=== PATIENT | male | born 1975 | race African-American/Black ===

== ENCOUNTER 2022-12-21 16:32 | Emergency (ER) | payer MEDICAID, OTHER ==
[~2022-12-21] VITALS: Ht 175.3 cm; Wt 79.0 kg
[~2022-12-21 16:32] MED LIST: AMOX-424 MT; SULF1TAB48 MT
[2022-12-21 16:39] VITALS: TEMP 98.4; O2SAT 98
[2022-12-21] MEDS ORDERED: IBUPROFEN 600MG TABLET PO ONE (18:15)
[2022-12-21] MEDS ORDERED: LIDOCAINE HCL/EPINEPHRINE 1%-EPI 1:100,000 20 ML VIAL INFIL ONE (18:15)
[2022-12-21] MEDS ORDERED: BACITRACIN ZINC OINT UDPKT TOP ONE (18:15)
[2022-12-21 18:39] VITALS: BP 91/64; PULSE 96; RESP 20
[2022-12-21] MEDS ORDERED: IBUP-2029 MT (20:14)
[2022-12-21] MEDS ORDERED: CEPH500C2 MT (20:14)
== END 2022-12-21 20:31 | disposition home or self-care (01) ==
LOC: ER 16:32
DX: S81.811A Laceration without foreign body, right lower leg, initial encounter (principal); F12.10 Cannabis abuse, uncomplicated; X58.XXXA Exposure to other specified factors, initial encounter; Y93.89 Activity, other specified; Y92.89 Other specified places as the place of occurrence of the external cause; Y99.8 Other external cause status
CPT/HCPCS: 73590; 12002; 99283; J3490; Z7610 ×2